=== PATIENT | female | born 2000 | race American Indian/Alaskan Native ===

== ENCOUNTER 2019-05-16 20:44 | Emergency (ER) | payer OTHER ==
[2019-05-16] MEDS ORDERED: BOOSTRIX IM ONE (21:57)
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
[2019-05-17] MEDS ORDERED: LET TOPICAL TP ONE (00:25)
[2019-05-17] MEDS ORDERED: XYLOCAINE 1% MPF 5 mL INFILTRATI ONE (00:25)
[2019-05-17] MEDS ORDERED: IBUPROFEN PO ONE (00:25)
[2019-05-17] MEDS ORDERED: BOOSTRIX IM ONE (01:11)
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
[2019-05-17 02:33] VITALS: BP 123/73
== END 2019-05-17 02:34 | disposition home or self-care (01) ==
LOC: ED 20:44
DX: S71.111A Laceration without foreign body, right thigh, initial encounter (principal); J45.909 Unspecified asthma, uncomplicated; Z87.891 Personal history of nicotine dependence; W26.0XXA Contact with knife, initial encounter; Y93.89 Activity, other specified; Y92.89 Other specified places as the place of occurrence of the external cause; Y99.8 Other external cause status
CPT/HCPCS: 90715